=== PATIENT | male | born 1950 | race Hispanic/Latino ===

== ENCOUNTER 2020-11-23 06:13 | Day surgery (SDC) | payer MEDICARE ==
[~2020-11-23] VITALS: Ht 175.3 cm; Wt 93.0 kg
[2020-11-23] VITALS (7 sets, daily range): BP systolic 141–148; BP diastolic 66–74
[~2020-11-23 06:13] MED LIST: 0.9%NACL 1000ML 1,000 ML IV ONE; ATOR20TA65 PO; CYAN250014 PO; GLIP1TAB6 PO; LISI20TA24 PO; MV-M1TAB20 PO
[2020-11-23] MEDS ORDERED: GLYCOPYRROLATE 0.2 MG/ML 5 ML VIAL ONE (08:55)
[2020-11-23] MEDS ORDERED: LIDOCAINE HCL 400MG/20ML VIAL ONE (08:55)
[2020-11-23] MEDS ORDERED: PROPOFOL 10 MG/ML 20ML VIAL IV ONE (08:55)
== END 2020-11-23 09:45 | disposition home or self-care (01) ==
LOC: DAH 06:13 → ENDO 06:13
PROVIDERS: ATTEND Internal Medicine Gastroenterology
DX: Z12.11 Encounter for screening for malignant neoplasm of colon (principal); K63.5 Polyp of colon; K62.1 Rectal polyp; I10 Essential (primary) hypertension; E11.9 Type 2 diabetes mellitus without complications; Z86.010 Personal history of colon polyps; Z79.899 Other long term (current) drug therapy; Z87.442 Personal history of urinary calculi; Z20.822 Contact with and (suspected) exposure to COVID-19
CPT/HCPCS: 45380; 45385; 82948 ×2; 87635; 93005; A4215; A4221; A4222; A4223; A4606; A4620; A4657; A4663; C9803; J2704; J3490 ×2; J7030